=== PATIENT | male | born 1970 | race Caucasian/White ===

== ENCOUNTER 2017-10-31 10:56 | Emergency (ER) | payer BC ==
[~2017-10-31] VITALS: Ht 177.8 cm; Wt 95.2 kg
[2017-10-31 11:06] VITALS: Ht 177.8 cm; Wt 95.2 kg
[2017-10-31 11:25] LABS: microscopic required? NO
[2017-10-31 11:41] LABS: BASOPHIL % 0.3 % (0-2); PLATELET COUNT 228 x10^3mcL (130-400); RED CELL DISTRIBUTION WIDTH 13.6 % (11.5-14.5)
[2017-10-31 12:01] LABS: UA SPECIFIC GRAVITY <=1.005 (1.005-1.035); urine erythrocyte NEGATIVE (NEGATIVE)
[2017-10-31 12:02] LABS: CALCIUM 8.5 mg/dL (8.5-10.1); CARBON DIOXIDE 29.9 mmol/L (21-32); CHLORIDE SERUM 101 mmol/L (98-107); CREATININE SERUM 1.2 mg/dL (0.7-1.3); GFR1 > 60 mL/min; GLUCOSE SERUM 106 mg/dL (74-106); POTASSIUM SERUM 3.5 mmol/L (3.5-5.1); SODIUM SERUM 137 mmol/L (136-145)
[2017-10-31 12:05] LABS: ALBUMIN 3.9 g/dL (3.4-5.0); ALKALINE PHOSPHATASE 83 U/L (46-116); ALT/SGPT 39 U/L (16-63); AST/SGOT 20 U/L (15-37); BILIRUBIN TOTAL 1.3 mg/dL (0.20-1.00); LIPASE 112 IU/L (73-393); TOTAL PROTEIN, SERUM 7.7 g/dL (6.4-8.2)
[2017-10-31 14:25] VITALS: BP 113/72
== END 2017-10-31 14:25 | disposition home or self-care (01) ==
LOC: ED 10:56
PROVIDERS: Emergency Medicine
DX: K57.92 Diverticulitis of intestine, part unspecified, without perforation or abscess without bleeding (principal)
CPT/HCPCS: J0696; J1885; J3010; J3490; J7030

== ENCOUNTER 2017-11-01 11:51 | Emergency (ER) | payer BC ==
[~2017-11-01] VITALS: Ht 177.8 cm; Wt 95.2 kg
[2017-11-01 12:07] VITALS: Ht 177.8 cm; Wt 95.2 kg
[2017-11-01 12:33] VITALS: BP 111/79
== END 2017-11-01 12:33 | disposition home or self-care (01) ==
LOC: ED 11:51
DX: K57.92 Diverticulitis of intestine, part unspecified, without perforation or abscess without bleeding (principal)